=== PATIENT | female | born 1945 | race Caucasian/White ===

== ENCOUNTER 2021-02-07 12:39 | Outpatient (CLI) | payer MEDICARE, OTHER, SELFPAY ==
[2021-02-07 12:57] LABS: Basophils Percent Auto 0.5 % (0.2-1.2); Eosinophils Absolute Auto 0.2 K/mm3 (0-0.3); Eosinophils Percent Auto 3.9 % (0-4.4); Hematocrit 30.8 % (37.0-47.0); Hemoglobin 10.1 g/dL (12.0-15.0); Immature Granulocyte Absolute 0.02 K/mm3 (0.00-0.031); Immature Granulocyte Percent A 0.4 % (0-0.5); Lymphocytes Absolute Auto 1.06 K/mm3 (0.9-3.2); Lymphocytes Percent Auto 18.8 % (18.3-44.2); Mean Corpuscular HGB Conc 32.8 g/dl (32-36); Mean Corpuscular Volume 88.5 fl (80-100); Mean Platelet Volume 8.2 fl (7.4-10.4); Monocytes Absolute Auto 0.4 K/mm3 (0.1-0.6); Monocytes Percent Auto 7.5 % (2.6-8.5); Neutrophils Absolute Auto 3.9 K/mm3 (1.3-6.7); Neutrophils Percent Auto 68.9 % (45.5-73.1); Platelet Count Result 209 k/mm3 (150-375); Red Blood Count 3.48 M/mm3 (4.2-5.4); Red Cell Distribution Width 13.6 % (11.5-14.5); White Blood Count 5.6 K/mm3 (4.5-10.0)
[2021-02-07 14:46] LABS: Alanine Aminotransferase 19 U/L (4-35); Albumin Level 3.9 g/dL (3.5-5.1); Alkaline Phosphatase 67 U/L (38-126); Anion Gap 9 mmol/L (8-16); Aspartate Amino Transferase 30 U/L (14-36); Bilirubin,Total 0.3 mg/dL (0.2-1.3); Blood Urea Nitrogen 29 mg/dL (7-17); Calcium 9.4 mg/dL (8.4-10.2); Carbon Dioxide 22 mmol/L (22-30); Chloride 110 mmol/L (98-107); Estimated Glomerular Filt Rate 27; Glucose 101 mg/dL (65-105); Lactate Dehydrogenase 359 U/L (313-618); Sodium 141 mmol/L (137-145)
== END 2021-02-07 12:40 | disposition home or self-care (01) ==
LOC: ANHLAB 12:41
PROVIDERS: PCP Family Medicine; Visit Provider Internal Medicine Hematology & Oncology
DX: C85.90 Non-Hodgkin lymphoma, unspecified, unspecified site (principal)
CPT/HCPCS: 36415; 80053; 83615; 85025

== ENCOUNTER 2021-02-28 12:01 | Outpatient (CLI) | payer MEDICARE, OTHER, SELFPAY ==
[2021-02-28 12:20] LABS: Basophils Percent Auto 0.2 % (0.2-1.2); Eosinophils Absolute Auto 0.1 K/mm3 (0-0.3); Eosinophils Percent Auto 2.1 % (0-4.4); Hematocrit 31.4 % (37.0-47.0); Hemoglobin 10.2 g/dL (12.0-15.0); Immature Granulocyte Absolute 0.01 K/mm3 (0.00-0.031); Immature Granulocyte Percent A 0.2 % (0-0.5); Lymphocytes Absolute Auto 0.88 K/mm3 (0.9-3.2); Lymphocytes Percent Auto 16.6 % (18.3-44.2); Mean Corpuscular HGB Conc 32.5 g/dl (32-36); Mean Corpuscular Hemoglobin 28.8 pg (26-34); Mean Corpuscular Volume 88.7 fl (80-100); Mean Platelet Volume 8.7 fl (7.4-10.4); Monocytes Absolute Auto 0.4 K/mm3 (0.1-0.6); Monocytes Percent Auto 6.8 % (2.6-8.5); Neutrophils Absolute Auto 3.9 K/mm3 (1.3-6.7); Neutrophils Percent Auto 74.1 % (45.5-73.1); Platelet Count Result 205 k/mm3 (150-375); Red Blood Count 3.54 M/mm3 (4.2-5.4); Red Cell Distribution Width 13.5 % (11.5-14.5); White Blood Count 5.3 K/mm3 (4.5-10.0)
[2021-02-28 14:41] LABS: Alanine Aminotransferase 24 U/L (4-35); Albumin Level 4.2 g/dL (3.5-5.1); Alkaline Phosphatase 71 U/L (38-126); Anion Gap 10 mmol/L (8-16); Aspartate Amino Transferase 36 U/L (14-36); Bilirubin,Total 0.2 mg/dL (0.2-1.3); Blood Urea Nitrogen 29 mg/dL (7-17); Calcium 9.6 mg/dL (8.4-10.2); Carbon Dioxide 21 mmol/L (22-30); Chloride 110 mmol/L (98-107); Estimated Glomerular Filt Rate 31; Glucose 99 mg/dL (65-105); Potassium 4.1 mmol/L (3.4-5.0); Sodium 141 mmol/L (137-145)
[2021-02-28 14:59] LABS: Immunoglobulin G 2094 mg/dL (700-1600); Immunoglobulin M 45 mg/dL (40-230)
[2021-02-28 16:11] LABS: Immunoglobulin A 2185 mg/dL (70-400)
[2021-03-03 05:25] LABS: Abnormal Protein Band 1 1.2 g/dL; Albumin 3.8 g/dL (3.8-4.8); Alpha 1 Globulin 0.3 g/dL (0.2-0.3); Alpha 2 Globulin 0.6 g/dL (0.5-0.9); Beta 1 Globulin 0.5 g/dL (0.4-0.6); Gamma Globulin 3.2 g/dL (0.8-1.7); Protein, Total 8.9 g/dL (6.1-8.1)
[2021-03-03 05:46] LABS: Kappa\\Lambda Light Chains 2.35 (0.26-1.65); Lambda Light Chain 36.8 mg/L (5.7-26.3)
[2021-03-05 13:05] LABS: Beta-2-Microglobulin 7.09 mg/L (<=2.51)
== END 2021-02-28 12:02 | disposition home or self-care (01) ==
LOC: ANHLAB 12:05
PROVIDERS: PCP Family Medicine; Visit Provider Internal Medicine Hematology & Oncology
DX: C85.90 Non-Hodgkin lymphoma, unspecified, unspecified site (principal); E88.09 Other disorders of plasma-protein metabolism, not elsewhere classified
CPT/HCPCS: 36415; 80053; 82232; 82784; 83883; 84155; 84165; 85025; 88184; 88185

== ENCOUNTER 2021-03-17 12:14 | Outpatient (CLI) | payer MEDICARE, OTHER, SELFPAY ==
--- NOTE | ~2021-03-17 | XR_ITS ---
EXAMINATION: XR bone survey comp/metastic DATE: 03/17/2021 12:55 INDICATION: Plasma cell disorder. TECHNIQUE: 29 views of a skeletal survey were obtained. COMPARISON: None. FINDINGS: Calcified right lung nodules are consistent with old granulomatous disease. There is severe cervical spondylosis. 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 There is mild left hip osteoart hritis. There is thoracic kyphosis and severe lower thoracic spondylosis. There is severe lumbar spon dylosis. IMPRESSION: 1. No evidence of multiple myeloma. Reviewed, dictated and finalized at location B.
== END 2021-03-17 12:15 | disposition home or self-care (01) ==
PROVIDERS: PCP Family Medicine; Visit Provider Internal Medicine Hematology & Oncology
DX: D72.9 Disorder of white blood cells, unspecified (principal)
CPT/HCPCS: 77075

== ENCOUNTER → 2021-03-24 02:19 | Outpatient (CLI) | payer MEDICARE, OTHER, SELFPAY ==
[2021-03-24 19:11] LABS: SARS-CoV-2 RNA PCR Negative
== END ==
PROVIDERS: PCP Family Medicine; Visit Provider Internal Medicine Hematology & Oncology
DX: Z01.812 Encounter for preprocedural laboratory examination (principal); Z20.822 Contact with and (suspected) exposure to COVID-19
CPT/HCPCS: C9803; U0003; U0005

== ENCOUNTER 2021-03-27 02:22 | Day surgery (SDC) | payer MEDICARE, OTHER, SELFPAY ==
[2021-03-24 14:34] VITALS: BMI 23.8
--- NOTE | ~2021-03-27 | BM_ITS ---
EXAMINATION: CCL bone marrow asp w bx diag ORDER COMPLETED DATE: 03/27/2021 09:28 INDICATION: Plasma cell disorder TECHNIQUE: A time-out was performed to verify the patient's name, date of , and procedure to b e performed. The procedure including the risks and benefits was discussed with the patient. Risks dis cussed included bleeding, infection, nerve injury and allergic reaction. The patient understood the r isks and agreed to proceed. The skin overlying the left posterior iliac spine was prepped and draped in usual sterile fashion. Anesthetic was administered with 1% lidocaine subcutaneously. Moderate con scious sedation was achieved with 50 mcg fentanyl IV. An 11 gauge needle was inserted into the ilium with fluoroscopic guidance. Bone marrow was aspirated. An 8 gauge needle was then inserted into the i lium with fluoroscopic guidance. A core bone marrow biopsy was obtained. The needle was removed and t he entry site was cleaned and dressed. There were no immediate complications. A total of 8 fluorosco pic images were recorded. Fluoroscopy exposure time was 0.1 minutes. FINDINGS: Real-time fluoroscopy demonstrates the biopsy needle tip overlying the left posterior iliac spine. IMPRESSION: 1. Successful fluoroscopic guided bone marrow aspiration. 2. Successful fluoroscopic guided bone marrow biopsy. Reviewed, dictated and finalized at location A.
[2021-03-27 07:59] LABS: Basophils Percent Auto 0.4 % (0.2-1.2); Eosinophils Absolute Auto 0.2 K/mm3 (0-0.3); Eosinophils Percent Auto 2.4 % (0-4.4); Hematocrit 29.8 % (37.0-47.0); Hemoglobin 9.9 g/dL (12.0-15.0); Immature Granulocyte Absolute 0.02 K/mm3 (0.00-0.031); Immature Granulocyte Percent A 0.2 % (0-0.5); Lymphocytes Percent Auto 18.6 % (18.3-44.2); Mean Corpuscular HGB Conc 33.2 g/dl (32-36); Mean Corpuscular Hemoglobin 29.6 pg (26-34); Mean Corpuscular Volume 89.2 fl (80-100); Mean Platelet Volume 8.6 fl (7.4-10.4); Monocytes Absolute Auto 0.5 K/mm3 (0.1-0.6); Monocytes Percent Auto 5.7 % (2.6-8.5); Neutrophils Absolute Auto 5.9 K/mm3 (1.3-6.7); Neutrophils Percent Auto 72.7 % (45.5-73.1); Platelet Count Result 214 k/mm3 (150-375); Red Blood Count 3.34 M/mm3 (4.2-5.4); Red Cell Distribution Width 14.6 % (11.5-14.5); White Blood Count 8.1 K/mm3 (4.5-10.0)
[2021-03-27 08:14] LABS: INR 1.1; Prothrombin Time 14.9 Seconds (11.1-14.7)
[2021-03-27 08:20] VITALS: BP 153/72; PULSE 92; RESP 22; TEMP 36.7; O2SAT 99; BMI 22.9
--- NOTE | 2021-03-27 08:55 | WPDMODSED ---
Moderate Sedation Note-Pt Data Patient Data Allergies Allergy/AdvReac Type Severity Reaction Status Date / Time Sulfa (Sulfonamide Allergy Unknown Unknown Verified 03/27/21 08:35 Antibiotics) Home Medications Medication Instructions Recorded Confirmed Type calcium carb,cit ER 600 mg-vit D3 1 tablet PO DAILY 12/13/20 03/24/21 History 12.5 mcg (500 unit) tablet,ext.rel flaxseed oil 1,000 mg capsule 1,000 mg PO DAILY 12/13/20 03/24/21 History glucos sul [id number]-myilf-C-Mn 1 tab-cap PO DAILY 12/13/20 03/24/21 History [Glucosamine Chondroitin] multivitamin 1 tablet PO DAILY 12/13/20 03/24/21 History omeprazole 20 mg capsule,delayed 20 mg PO DAILY 12/13/20 03/24/21 History release turmeric 1 tab-cap PO DAILY 12/13/20 03/24/21 History cevimeline 30 mg capsule 30 mg PO TID #90 cap 01/03/21 03/24/21 Rx hydroxychloroquine 200 mg tablet 200 mg PO DAILY #90 tablet 01/03/21 03/24/21 Rx pilocarpine HCl 5 mg tablet 5 mg PO TID #90 tablet 01/03/21 03/24/21 Rx Prolia 1 ml IM WEEKLY 03/24/21 03/24/21 History Sodium Fluoride 5000 Dry Mouth 1 unit PO DAILY 03/24/21 03/24/21 History saliva substitute combo no.9 1 ml PO DAILY 03/24/21 03/24/21 History [Biotene Dry Mouth Oral Rinse] Sedation/Anesthesia: No previous sedation/anesthesia problems (including family history). [facility] Past Medical History Medical History Age-related osteoporosis without current pathological fracture Allergies GERD (gastroesophageal reflux disease) Osteoporosis Sjogren's syndrome without extraglandular involvement Weight loss Surgical History Surgical History H/O: hysterectomy History of appendectomy Family History Family History Mother Cerebrovascular accident Anxiety Father Hypertension Grandparent Tuberculosis Acute myocardial infarction Sibling Cancer Diabetes mellitus Glaucoma Myasthenia gravis Melanoma Social History Social History Smoking status: Never smoker Second hand tobacco smoke exposure: No Alcohol intake: former Alcohol use details: occasional use Substance use: never Substance use type: does not use Living arrangements: alone Gender identity (if verbalized by the patient): Female Sexual Orientation (if Verbalized by the Patient): Straight or Heterosexual Spiritual care concerns: No Mod Sed Physical Exam Physical Exam Pre Procedural Exam: Normal: Appearance, Eyes, Ears, Nose, Throat, Airway, Lungs, Heart Rate, Heart Rhythm, Extremities and Skin Hours since solid foods: 12 Hours since liquid intake: 12 Internal Medicine - PN: Obj Da Vital Signs Vital Signs: Vital Signs - 24 hr 03/27/21 08:20 Temperature 98.1 F Pulse Rate 92 Respiratory Rate 22 H Blood Pressure 153/72 H Pulse Oximetry 99 Labs CBC & Chem 7: 03/27/21 07:44 Labs: Laboratory Results - last 24 hr 03/27/21 03/27/21 07:44 07:44 WBC 8.1 RBC 3.34 L Hgb 9.9 L Hct 29.8 L MCV 89.2 MCH 29.6 MCHC 33.2 RDW 14.6 H Plt Count 214 MPV 8.6 Immature Gran % (Auto) 0.2 Neut % (Auto) 72.7 Lymph % (Auto) 18.6 [place] % (Auto) 5.7 Eos % (Auto) 2.4 Baso % (Auto) 0.4 Lymph # (Auto) 1.50 [place] # (Auto) 0.5 Eos # (Auto) 0.2 Baso # (Auto) 0.0 Abs Immat Gran (auto) 0.02 Absolute Neuts (auto) 5.9 Absolute Nucleated RBC 0.0 Nucleated RBC % 0.0 PT 14.9 H INR 1.1 ASA Classification/Sedation ASA Classification/Sedation ASA Class: III Emergent: No Risks: Risks, benefits and alternatives explained and patient/family accepted plan for sedation. Patient re-evaluated immediately prior to sedation.
--- NOTE | 2021-03-27 09:25 | WPDMODSED ---
Moderate Sedation Note-Pt Data Patient Data Allergies Allergy/AdvReac Type Severity Reaction Status Date / Time Sulfa (Sulfonamide Allergy Unknown Unknown Verified 03/27/21 08:35 Antibiotics) Home Medications Medication Instructions Recorded Confirmed Type calcium carb,cit ER 600 mg-vit D3 1 tablet PO DAILY 12/13/20 03/24/21 History 12.5 mcg (500 unit) tablet,ext.rel flaxseed oil 1,000 mg capsule 1,000 mg PO DAILY 12/13/20 03/24/21 History glucos sul [id number]-C-Mn 1 tab-cap PO DAILY 12/13/20 03/24/21 History [Glucosamine Chondroitin] multivitamin 1 tablet PO DAILY 12/13/20 03/24/21 History omeprazole 20 mg capsule,delayed 20 mg PO DAILY 12/13/20 03/24/21 History release turmeric 1 tab-cap PO DAILY 12/13/20 03/24/21 History cevimeline 30 mg capsule 30 mg PO TID #90 cap 01/03/21 03/24/21 Rx hydroxychloroquine 200 mg tablet 200 mg PO DAILY #90 tablet 01/03/21 03/24/21 Rx pilocarpine HCl 5 mg tablet 5 mg PO TID #90 tablet 01/03/21 03/24/21 Rx Prolia 1 ml IM WEEKLY 03/24/21 03/24/21 History Sodium Fluoride 5000 Dry Mouth 1 unit PO DAILY 03/24/21 03/24/21 History saliva substitute combo no.9 1 ml PO DAILY 03/24/21 03/24/21 History [Biotene Dry Mouth Oral Rinse] Sedation/Anesthesia: No previous sedation/anesthesia problems (including family history). [facility] Past Medical History Medical History Age-related osteoporosis without current pathological fracture Allergies GERD (gastroesophageal reflux disease) Osteoporosis Sjogren's syndrome without extraglandular involvement Weight loss Surgical History Surgical History H/O: hysterectomy History of appendectomy Family History Family History Mother Cerebrovascular accident Anxiety Father Hypertension Grandparent Tuberculosis Acute myocardial infarction Sibling Cancer Diabetes mellitus Glaucoma Myasthenia gravis Melanoma Social History Social History Smoking status: Never smoker Second hand tobacco smoke exposure: No Alcohol intake: former Alcohol use details: occasional use Substance use: never Substance use type: does not use Living arrangements: alone Gender identity (if verbalized by the patient): Female Sexual Orientation (if Verbalized by the Patient): Straight or Heterosexual Spiritual care concerns: No Mod Sed Physical Exam Physical Exam Pre Procedural Exam: Normal: Appearance, Eyes, Nose, Neck, Throat, Lungs, Heart Rate, Heart Rhythm, Abdomen and Extremities Hours since solid foods: 9 Hours since liquid intake: 9 Internal Medicine - PN: Obj Da Vital Signs Vital Signs: Vital Signs - 24 hr 03/27/21 08:20 Temperature 98.1 F Pulse Rate 92 Respiratory Rate 22 H Blood Pressure 153/72 H Pulse Oximetry 99 Labs CBC & Chem 7: 03/27/21 07:44 Labs: Laboratory Results - last 24 hr 03/27/21 03/27/21 07:44 07:44 WBC 8.1 RBC 3.34 L Hgb 9.9 L Hct 29.8 L MCV 89.2 MCH 29.6 MCHC 33.2 RDW 14.6 H Plt Count 214 MPV 8.6 Immature Gran % (Auto) 0.2 Neut % (Auto) 72.7 Lymph % (Auto) 18.6 [place] % (Auto) 5.7 Eos % (Auto) 2.4 Baso % (Auto) 0.4 Lymph # (Auto) 1.50 [place] # (Auto) 0.5 Eos # (Auto) 0.2 Baso # (Auto) 0.0 Abs Immat Gran (auto) 0.02 Absolute Neuts (auto) 5.9 Absolute Nucleated RBC 0.0 Nucleated RBC % 0.0 PT 14.9 H INR 1.1 ASA Classification/Sedation ASA Classification/Sedation ASA Class: III Emergent: No Risks: Risks, benefits and alternatives explained and patient/family accepted plan for sedation. Patient re-evaluated immediately prior to sedation.
[2021-03-27 09:40] VITALS: BP 142/62; PULSE 91; RESP 16; O2SAT 98
[2021-03-27 09:57] VITALS: BP 137/65; PULSE 91; RESP 16; O2SAT 98
[2021-03-27 10:10] VITALS: BP 125/65; PULSE 83; RESP 16; O2SAT 98
[2021-03-27 10:25] VITALS: BP 130/57; PULSE 82; RESP 16; O2SAT 98
[2021-03-27 10:40] VITALS: BP 131/64; PULSE 82; RESP 16; TEMP 36.7; O2SAT 98
--- NOTE | 2021-03-27 11:28 | SUR.PHASEII ---
1100 - Iv D/c'd from left forearm, catheter intact, no redness or swelling at the site. Drsg to right posterior hip remains clean dry and intact. Discharge instructions reviewed with patient and daughter with stated understanding. Pt aware to follow- up with referring MD next week for procedure results. Pt discharged via wheelchair to daughter's personal vehicle.
== END 2021-03-27 11:00 | disposition home or self-care (01) ==
PROVIDERS: PCP Family Medicine; Referring Provider Internal Medicine Hematology & Oncology; Visit Provider Radiology Diagnostic Radiology
DX: D75.9 Disease of blood and blood-forming organs, unspecified (principal); R63.4 Abnormal weight loss; D64.9 Anemia, unspecified; M35.00 Sjogren syndrome, unspecified; M81.0 Age-related osteoporosis without current pathological fracture; K21.9 Gastro-esophageal reflux disease without esophagitis
CPT/HCPCS: 36415; 38222; 85025; 85610; 88184; 88185; 88305; 88311; 88313; 88341; 88342; 88360; J3010; J7040

== ENCOUNTER 2021-06-29 10:52 | Outpatient (CLI) | payer MEDICARE, OTHER, SELFPAY ==
[2021-06-29 11:15] LABS: Basophils Percent Auto 0.4 % (0.2-1.2); Eosinophils Absolute Auto 0.4 K/mm3 (0-0.3); Eosinophils Percent Auto 8.4 % (0-4.4); Hematocrit 28.4 % (37.0-47.0); Hemoglobin 9.1 g/dL (12.0-15.0); Immature Granulocyte Absolute 0.01 K/mm3 (0.00-0.031); Immature Granulocyte Percent A 0.2 % (0-0.5); Lymphocytes Absolute Auto 0.92 K/mm3 (0.9-3.2); Lymphocytes Percent Auto 18.9 % (18.3-44.2); Mean Corpuscular Hemoglobin 29.3 pg (26-34); Mean Corpuscular Volume 91.3 fl (80-100); Mean Platelet Volume 8.1 fl (7.4-10.4); Monocytes Absolute Auto 0.3 K/mm3 (0.1-0.6); Monocytes Percent Auto 5.7 % (2.6-8.5); Neutrophils Absolute Auto 3.2 K/mm3 (1.3-6.7); Neutrophils Percent Auto 66.4 % (45.5-73.1); Platelet Count Result 209 k/mm3 (150-375); Red Blood Count 3.11 M/mm3 (4.2-5.4); Red Cell Distribution Width 13.5 % (11.5-14.5); White Blood Count 4.9 K/mm3 (4.5-10.0)
[2021-06-29 11:56] LABS: Anion Gap 10 mmol/L (8-16); Blood Urea Nitrogen 29 mg/dL (7-17); Calcium 9.8 mg/dL (8.4-10.2); Carbon Dioxide 20 mmol/L (22-30); Chloride 111 mmol/L (98-107); Estimated Glomerular Filt Rate 24; Glucose 103 mg/dL (65-110); Potassium 4.2 mmol/L (3.4-5.0); Sodium 141 mmol/L (137-145)
[2021-06-30 13:24] LABS: Iron 69 ug/dL (37-170)
[2021-06-30 13:33] LABS: Percent Iron Saturation 28 % (20-50)
== END 2021-06-29 10:53 | disposition home or self-care (01) ==
LOC: ANHLAB 10:59
PROVIDERS: PCP Family Medicine; Visit Provider Internal Medicine Hematology & Oncology
DX: N18.32 Chronic kidney disease, stage 3b (principal); D63.1 Anemia in chronic kidney disease
CPT/HCPCS: 36415; 80048; 82728; 83540; 83550; 85025

== ENCOUNTER 2021-08-21 10:05 | Outpatient (CLI) | payer MEDICARE, OTHER, SELFPAY ==
[2021-08-21 10:55] LABS: Add Urine Microscopic? NO; Appearance Urine Clear (Clear); Bilirubin Urine Negative (Negative); Blood Urine Negative (Negative); Color Urine Light Yellow (Yellow); Glucose Urine UA Negative (Negative); Ketones Urine Negative (Negative); Leukocyte Esterase Ur Negative LEU/UL (Negative); Nitrate Urine Negative (Negative); Protein Urine Negative (Negative); Urobilinogen Urine 0.2 mg/dL (<2.0); pH Urine 6.5 (5.0-9.0)
[2021-08-21 12:12] LABS: Alanine Aminotransferase 23 U/L (4-35); Albumin Level 4.3 g/dL (3.5-5.1); Alkaline Phosphatase 90 U/L (38-126); Anion Gap 10 mmol/L (8-16); Aspartate Amino Transferase 54 U/L (14-36); Bilirubin,Total 0.4 mg/dL (0.2-1.3); Blood Urea Nitrogen 36 mg/dL (7-17); CRP < 0.5 mg/dL (<1.0); Calcium 9.9 mg/dL (8.4-10.2); Carbon Dioxide 19 mmol/L (22-30); Chloride 110 mmol/L (98-107); Estimated Glomerular Filt Rate 23; Glucose 99 mg/dL (65-110); Potassium 4.3 mmol/L (3.4-5.0); Sodium 139 mmol/L (137-145)
== END 2021-08-21 10:06 | disposition home or self-care (01) ==
LOC: ANHLAB 10:08
PROVIDERS: PCP Family Medicine; Visit Provider Internal Medicine
DX: M19.90 Unspecified osteoarthritis, unspecified site (principal); M35.00 Sjogren syndrome, unspecified; Z79.899 Other long term (current) drug therapy
CPT/HCPCS: 36415; 80053; 81003; 86140

== ENCOUNTER 2023-02-20 00:28 | Day surgery (SDC) | payer MEDICARE, OTHER, SELFPAY ==
[2023-02-20] VITALS (7 sets, daily range): BP systolic 138–165; BP diastolic 71–82; PULSE 75–91; RESP 14–18; TEMP 37.3; O2SAT 92–96; BMI 19.1
--- NOTE | ~2023-02-20 | BM_ITS ---
EXAMINATION: CCL bone marrow asp w bx diag DATE: 02/20/2023 09:38 INDICATION: Plasma cell disorder. TECHNIQUE: A time-out was performed to verify the patient's name, date of , and procedure to b e performed. The procedure including the risks, benefits, and alternatives was discussed with the pat ient. Risks discussed included bleeding and infection. The patient understood the risks and agreed to proceed. The skin overlying the left ilium was prepped and draped in usual sterile fashion. Anesth etic was administered with 1% lidocaine subcutaneously. Moderate sedation was achieved with 0.5 mg Ve rsed IV and 50 mg fentanyl IV. An 11 gauge needle was inserted into the ilium with fluoroscopic guid ance. Bone marrow was aspirated. An 8 gauge needle was then inserted into the ilium with fluoroscopic guidance. A core bone marrow biopsy was obtained. There were no immediate complications. Fluoroscopy exposure time was 0.0 minutes. The total number of images was 9. FINDINGS: Real-time fluoroscopy demonstrates a marker overlying the left posterior superior iliac spi ne. IMPRESSION: 1. Fluoro-guided bone marrow aspiration. 2. Fluoro-guided bone marrow core biopsy. Reviewed, dictated and finalized at location A.
[2023-02-20 07:49] LABS: Hematocrit 31.2 % (37.0-47.0); Mean Corpuscular HGB Conc 32.1 g/dl (32-36); Mean Corpuscular Hemoglobin 31.7 pg (26-34); Mean Platelet Volume 8.5 fl (7.4-10.4); Platelet Count Result 108 k/mm3 (150-375); Red Blood Count 3.15 M/mm3 (4.2-5.4); Red Cell Distribution Width 16.7 % (11.5-14.5); White Blood Count 5.2 K/mm3 (4.5-10.0)
[2023-02-20 08:01] LABS: INR 1.3; Prothrombin Time 15.3 Seconds (11.1-14.7)
--- NOTE | 2023-02-20 08:22 | WPDMODSED ---
Moderate Sedation Note-Pt Data Patient Data Diagnosis: Plasma cell disorder. Present Complaint: Plasma cell disorder. Procedure to be performed/Plan: Fluoro-guided bone marrow biopsy of ilium. Allergies Allergy/AdvReac Type Severity Reaction Status Date / Time Sulfa (Sulfonamide Allergy Unknown Unknown Verified 02/20/23 07:38 Antibiotics) gabapentin AdvReac Unknown Other Verified 02/20/23 07:38 Home Medications Medication Instructions Recorded Confirmed Type omeprazole 20 mg capsule,delayed 20 mg PO DAILY 12/13/20 02/20/23 History release fluticasone propionate 50 1 spray intranasal DAILY 04/28/21 02/19/23 History mcg/actuation nasal spray,suspension saliva substitute combo no.9 15 ml mucous membrane QID PRN Dry 07/24/21 02/19/23 History (Biotene Dry Mouth Oral Rinse Mouth mouthwash) hydroxychloroquine 200 mg tablet 200 mg PO DAILY #90 tabs 10/19/22 02/19/23 Rx (Plaquenil) pilocarpine HCl 5 mg tablet 5 mg PO TID #90 tabs 10/19/22 02/20/23 Rx Epogen See Rx Instructions .Route .COMPLEX 02/19/23 02/19/23 History Venofer See Rx Instructions .Route .COMPLEX 02/19/23 02/19/23 History buspirone 5 mg tablet 5 mg PO TID PRN Anxiety 02/19/23 02/19/23 History carboxymethylcellulose sodium 0.25 1 drp LEFT EYE DAILY PRN Dry Eyes 02/19/23 02/19/23 History % eye drops (TheraTears) cetirizine 10 mg tablet (Zyrtec) 10 mg PO DAILY PRN allergies 02/19/23 02/19/23 History fluoride (sodium) 1.1 % dental 1 applic PO DAILY 02/19/23 02/19/23 History paste (PreviDent 5000 Dry Mouth) hydroxyzine HCl 25 mg tablet 25 mg PO TID 02/19/23 02/19/23 History nut.tx.impaired renal fxn,soy 1 ea PO USEASDIRECTD 02/19/23 02/19/23 History nutritional supplements 1 ea PO USEASDIRECTD 02/19/23 02/19/23 History olopatadine 0.2 % eye drops 1 drp EACH EYE DAILY 02/19/23 02/19/23 History sevelamer carbonate 800 mg tablet 1,600 mg PO TID 02/19/23 02/19/23 History Sedation/Anesthesia: No previous sedation/anesthesia problems (including family history). [facility] Past Medical History Medical History Age-related osteoporosis without current pathological fracture Allergies GERD (gastroesophageal reflux disease) Osteoporosis Sjogren's syndrome without extraglandular involvement Weight loss Surgical History Surgical History H/O: hysterectomy History of appendectomy Family History Family History Mother Cerebrovascular accident Anxiety Father Hypertension Grandparent Tuberculosis Acute myocardial infarction Sibling Cancer Diabetes mellitus Glaucoma Myasthenia gravis Melanoma Social History Social History Smoking status: Never smoker Second hand tobacco smoke exposure: Yes ( smoked) Substance use: never Substance use type: does not use Living arrangements: alone Gender identity (if verbalized by the patient): Female Sexual Orientation (if Verbalized by the Patient): Straight or Heterosexual Spiritual care concerns: No Mod Sed Physical Exam Physical Exam Pre Procedural Exam: Normal: Airway, Lungs, Heart Rate, Heart Rhythm and Abdomen Hours since solid foods: 10 Hours since liquid intake: 10 Mallampati Classification: class 1 Internal Medicine - PN: Obj Da Vital Signs Vital Signs: Vital Signs - 24 hr 02/20/23 07:42 Temperature 37.3 C Pulse Rate 88 Respiratory Rate 14 Blood Pressure 164/82 H Pulse Oximetry 96 Oxygen Delivery Room Air Labs 02/20/23 07:41 Labs: Laboratory Results - last 24 hr 02/20/23 02/20/23 07:41 07:41 WBC 5.2 RBC 3.15 L Hgb 10.0 L Hct 31.2 L MCV 99.0 MCH 31.7 MCHC 32.1 RDW 16.7 H Plt Count 108 L MPV 8.5 PT 15.3 H INR 1.3 ASA Classification/Sedation ASA Classification/Sedation ASA Cl
== END 2023-02-20 10:30 | disposition home or self-care (01) ==
PROVIDERS: PCP Family Medicine; Referring Provider Internal Medicine Hematology & Oncology; Visit Provider Radiology Diagnostic Radiology
DX: C90.00 Multiple myeloma not having achieved remission (principal); M35.00 Sjogren syndrome, unspecified; M81.0 Age-related osteoporosis without current pathological fracture; K21.9 Gastro-esophageal reflux disease without esophagitis
CPT/HCPCS: 36415; 38222; 85027; 85610; 88184; 88185; 88305; 88311; 88313; 88341; 88342; J1642; J2250; J3010

== ENCOUNTER 2023-04-24 01:04 | Day surgery (SDC) | payer MEDICARE, OTHER, SELFPAY ==
--- NOTE | 2023-04-12 14:48 | PC.NURSE ---
Report to the Outpatient Waiting Room, entrance under the green pavilion located off [facility], at time __0700 on date __04/24/23 . Planned Procedure Time: _0900 . Time changes happen often and if your time is changed the preop area will call you the afternoon before. - You and your visitor will be asked to self-screen and do not enter if you have any COVID symptoms. - A mask is optional within the hospital at this time. Patients may have clear liquids (water, carbonated beverages, clear teas, apple juice) until 3 hours prior to surgery with a maximum of 20 ounces. - No food from midnight until time of surgery - Infants may have breast milk until 4 hours before surgery, infant formula 6 hours prior to surgery. - Children will be allowed to drink immediately following surgery. If applicable, please bring a bottle or sippy cup to assist with drinking. Juice, water, soda, and popsicles are readily available. For infants on formula, please bring formula the day of surgery. Pacifiers are allowed. Take the following medications with a SIP of water the morning of surgery: ___BUSPIRONE IF NEEDED,EYE DROPS DO NOT STOP ANY OF YOUR OTHER PRESCRIPTION MEDICATIONS PRIOR TO SURGERY ?EXCEPT THE FOLLOWING Medications to discontinue per physician NONE Date to take last dose Please no make-up, nail taiwanese, hairspray, perfume, deodorant, or body powder the day of surgery. No jewelry (including any body piercings) or valuables the day of surgery, leave them at home. Please take a shower or bath the night before, or the morning of, surgery with an antibacterial soap. Wear comfortable, loose fitting clothing. Children are encouraged to wear pajamas. - Jewelry must be removed prior to entering the operating room. Rings and piercings that are not removed may be cut off. - The hospital will not accept responsibility for valuables. - Please leave all valuables, including medications, at home the day of surgery. If you are going home after surgery, a licensed special events driver must drive you home. - NO public transportation without another adult if you receive anesthesia. - We recommend that an adult stay with you for 24 hours following discharge. - We also recommend that you do not drive, make important decision, drink alcoholic beverages, or take any drugs that were not prescribed by your health care provider for at least 24 hours after your discharge time. For Pediatric surgeries, we recommend two adults accompany the child home. Follow any additional instructions given to you from your surgeon. If you or anyone in your household have experienced Covid symptoms in the past week, please notify your surgeon or the nurse liaison at the phone number below for possible testing. Telephone instructions given to ___PATIENT and asked if any additional questions and then verbalized understanding. Patient advised to call surgeon office or pre surgery nurse liaison [phone] if any additional questions.
[2023-04-12 14:52] VITALS: BMI 19.8
--- NOTE | ~2023-04-24 | XR_ITS ---
EXAMINATION: XR fl guide central line place DATE: 04/24/2023 12:02 INDICATION: Port placement. TECHNIQUE: 2 intraoperative fluoroscopic views of the chest were obtained. I was not present. Fluoros copy exposure time was 64 seconds. COMPARISON: Chest radiograph 03/17/2021 FINDINGS: There is a right internal jugular central venous catheter with tip in superior vena cava. T he last image demonstrates increased opacity overlying the right lung. IMPRESSION: 1. Central line tip in superior vena cava. 2. Increased opacity overlying the right lung on the last image. This finding may be secondary to jeovany hnique and patient rotation or may be secondary to acute lung disease or acute right pleural effusion . Reviewed, dictated and finalized at location A. IMPRESSION: 1. Central line tip in superior vena cava. 2. Increased opacity overlying the right lung on the last image. This finding m ay be secondary to technique and patient rotation or may be secondary to acute lung disease or acute right pleural effusion.
[2023-04-24] MEDS: SODIUM CHLORIDE 0.9% IV 500 ML 30 ML IV CONT (07:44)
[2023-04-24 07:53] VITALS: BP 172/73; PULSE 94; RESP 16; TEMP 37.6; O2SAT 96
[2023-04-24 07:54] LABS: Anion Gap 8 mmol/L (8-16); Blood Urea Nitrogen 36 mg/dL (7-17); Calcium 9.9 mg/dL (8.4-10.2); Carbon Dioxide 34 mmol/L (22-30); Chloride 95 mmol/L (98-107); Estimated CRCL calculation 7 ml/min; Estimated Glomerular Filt Rate 9; Glucose 77 mg/dL (65-110); Potassium 4.8 mmol/L (3.4-5.0); Sodium 137 mmol/L (137-145)
[2023-04-24 07:55] LABS: Partial Thromboplastin Time 34.8 SECONDS (22.3-36.8)
--- NOTE | 2023-04-24 08:33 | WPDANESEPPF ---
Anes - Initial Pre Proc Eval Procedure: Operation Date: 04/24/23 09:00 Proposed Procedures p Insertion Merissa Cath - Fabian Crow MD Date/Time: 04/24/23 08:33 Surgeon: Fabian Crow MD Pre Op Diagnosis: multiple myeloma Patient Data Age: 77 Gender: F Height: 1.55 m Weight: 47.2 kg Last Vital Signs Temp 99.6 F 04/24/23 07:53 Pulse 94 04/24/23 07:53 Resp 16 04/24/23 07:53 BP 172/73 H 04/24/23 07:53 Pulse Ox 96 04/24/23 07:53 O2 Del Method Room Air 04/24/23 07:53 Allergies Allergy/AdvReac Type Severity Reaction Status Date / Time Sulfa (Sulfonamide Allergy Unknown Unknown Verified 04/24/23 07:15 Antibiotics) gabapentin AdvReac Unknown Other Verified 04/24/23 07:15 Home Medications Medication Instructions Recorded Confirmed Type omeprazole 20 mg capsule,delayed 20 mg PO DAILY 12/13/20 04/12/23 History release fluticasone propionate 50 1 spray intranasal DAILY 04/28/21 04/12/23 History mcg/actuation nasal spray,suspension saliva substitute combo no.9 15 ml mucous membrane QID PRN Dry 07/24/21 04/12/23 History (Biotene Dry Mouth Oral Rinse Mouth mouthwash) Epogen See Rx Instructions .Route .COMPLEX 02/19/23 04/12/23 History Venofer See Rx Instructions .Route .COMPLEX 02/19/23 04/12/23 History buspirone 5 mg tablet 5 mg PO TID PRN Anxiety 02/19/23 04/12/23 History carboxymethylcellulose sodium 0.25 1 drp LEFT EYE DAILY PRN Dry Eyes 02/19/23 04/12/23 History % eye drops (TheraTears) cetirizine 10 mg tablet (Zyrtec) 10 mg PO DAILY PRN allergies 02/19/23 04/12/23 History fluoride (sodium) 1.1 % dental 1 applic PO DAILY 02/19/23 04/12/23 History paste (PreviDent 5000 Dry Mouth) nut.tx.impaired renal fxn,soy 1 ea PO USEASDIRECTD 02/19/23 04/12/23 History nutritional supplements 1 ea PO USEASDIRECTD 02/19/23 04/12/23 History olopatadine 0.2 % eye drops 1 drp EACH EYE DAILY 02/19/23 04/12/23 History sevelamer carbonate 800 mg tablet 1,600 mg PO TID 02/19/23 04/12/23 History hydroxychloroquine 200 mg tablet 200 mg PO DAILY #90 tabs 04/08/23 04/12/23 Rx (Plaquenil) mirtazapine 7.5 mg tablet 7.5 mg PO DAILY 04/08/23 04/12/23 History pilocarpine HCl 5 mg tablet 5 mg PO TID #270 tabs 04/08/23 04/12/23 Rx Laboratory Tests 04/24/23 07:39 APTT 34.8 SECONDS (22.3-36.8) Sodium 137 mmol/L (137-145) Potassium 4.8 mmol/L (3.4-5.0) Chloride 95 L mmol/L (98-107) Carbon Dioxide 34 H mmol/L (22-30) Anion Gap 8 mmol/L (8-16) BUN 36 H mg/dL (7-17) Creatinine 4.60 H mg/dL (0.7-1.0) Estim Creat Clear Calc 7 ml/min Estimated GFR 9 L (59 - ) Glucose 77 mg/dL (65-110) Calcium 9.9 mg/dL (8.4-10.2) Patient hx anesthesia problems: none Family hx anesthesia problems: none Results Review: All pre-operative results and documents have been reviewed as part of the pre-operative evaluation. [facility] Past Medical History Medical History Age-related osteoporosis without current pathological fracture Allergies GERD (gastroesophageal reflux disease) MGUS (monoclonal gammopathy of unknown significance) Multiple myeloma Osteoporosis Sjogren's syndrome without extraglandular involvement Weight loss Surgical History Surgical History H/O: hysterectomy History of appendectomy Family History Family History Mother Cerebrovascular accident Anxiety Father Hypertension Grandparent Tuberculosis Acute myocardial infarction Sibling Cancer Diabetes mellitus Glaucoma Myasthenia gravis Melanoma Social History Social History Smoking status: Never smoker Second hand tobacco smoke exposure: Yes ( smoked) Substance use: never Substance use type: does not use
--- NOTE | 2023-04-24 09:17 | WPDHPUPDATE1 ---
History and Physical Update Update Date/Time: 04/24/23 09:17 History and Physical has been reviewed, including an updated exam of the patient. There are NO changes in the patient's condition. Risks, benefits, and alternatives have been discussed and questions answered. Patient agrees to proceed with procedure.
[2023-04-24] MEDS: ceFAZolin 2 GM/D5W 50 ML 2 GM/50 ML BAG IVPB (09:21)
[2023-04-24] MEDS: HEPARIN SODIUM 5,000 UNITS/ML VIAL 1000 UNITS IRRIGATION (10:03)
[2023-04-24] MEDS: HEPARIN SODIUM 5,000 UNITS/ML VIAL 5000 UNITS XX (10:04)
[2023-04-24] MEDS: LIDO 1%/EPINEPHRINE 1:100,000 20 ML VIAL 10 ML INFILTRATE (10:06)
--- NOTE | 2023-04-24 11:25 | SUR.OPER ---
At 10:35, Code Vladislav called per Anesthesia, chest compressions started. See Anesthesia documentation for medications and further details surrounding code.
--- NOTE | 2023-04-24 18:10 | W.PM.PROC2 ---
Procedure Note - Detailed Date of Procedure 04/24/23 Pre-op Diagnosis Multiple myeloma,End-stage renal disease Post-op Diagnosis Other ( Cardiac arrest secondary to hemorrhagic shock) Procedure Performed Attempted placement of right internal jugular vein Port-A-Cath Surgeon Fabian Crow MD Director Of [employer] Jono Messina, RN GASTROENTEROLOGY Anesthesia General Indications Patient is a 77-year-old white female who has multiple myeloma and is on dialysis for end-stage renal disease Description of Procedure After informed consent was obtained patient brought to the operating room she was placed supine position and then general LMA anesthesia was administered. The bilateral upper anterior chest and neck was then prepped and draped usual sterile fashion time-out was then performed correctly identifying the patient as well as procedure to be performed verified she was given some perioperative IV antibiotics. An approach placement of the catheter into the right internal jugular vein. The left-sided great veins were avoided because she had a left upper extremity AV graft for hemodialysis. Utilizing real-time ultrasound I was able to cannulate the right internal jugular vein and passed a guidewire via the right internal jugular vein into the superior vena cava. Intraoperative fluoroscopy was used to confirm that were placement of the guidewire in the superior vena cava. I then anesthetized the area the port pocket in the right upper anterior chest. This is done with 1% lidocaine mixed with 0.5% Marcaine. Then made a transverse incision in this area the scalp wound then with electrocautery and blunt finger dissection created the subcutaneous port pocket. Then tunneled a 9.6 [place] Helen[place] single-lumen catheter between the chest incision and the right neck incision. I then advanced dilator breakaway sheath over the guidewire. The dilator and guidewire were removed leaving the sheath in place. I advanced the size 9.6 [place] Helen[place] single-lumen catheter into the sheath. At that time there was not any backflow of any blood. Once had the catheter in place I tried to aspirate the catheter no blood aspirated through the catheter. I checked fluoroscopy again in the tip of the catheter appeared to be in the superior cava. I pulled the catheter back to see if there is and kinking and still there was no blood return. At this point I decided I would try placement of catheter into the right subclavian vein. I then removed the catheter from the right internal jugular vein. Very soon after I did this the patient started to have decrease in blood pressure decrease in oxygen saturations. Anesthesia then infused pressors and intubated the patient. We can no longer feel a carotid and femoral pulses so we started CPR with chest compressions. Anesthesia listened for breath sounds and appeared to breath sounds bilaterally. I went ahead and proceeded to place a right chest tube in case there was a tension pneumothorax. Placement of a chest tube into the right chest there was prompt drainage of rishi blood. We continued chest compressions and 3 rounds of cardiac shocks administration of atropine. I spoke to the patient's son who was awaiting Smith CPR continued and informed him of the dire situation with the patient being coded in the operating room. Then return to the operating room and there was approximately1.5L of blood that had collected of the right chest into the Pleur-evac. At this time CPR had been going on for about 25 to 30 minutes without return of heart rate or blood pressure. It was decided at this point the continuing CPR was futile and so I called the code. I then returned to speak to the patient's son and informed him and his sister on the phone with her mother had in the operating room during the procedure. They were understandably distraught. While we waited for the patient's daughter to come to the hospital the patient was taken to a private closed outpatient room. The dope maintenance worker
== END 2023-04-24 10:56 | disposition expired ==
PROVIDERS: Anesthesiology; PCP Family Medicine; Visit Provider Surgery
PROC: (CPT 36561; principal; 2023-04-24 09:00)
DX: C90.00 Multiple myeloma not having achieved remission (principal); I46.8 Cardiac arrest due to other underlying condition; R57.0 Cardiogenic shock; N18.6 End stage renal disease; Z99.2 Dependence on renal dialysis; D47.2 Monoclonal gammopathy; M35.00 Sjogren syndrome, unspecified; M81.0 Age-related osteoporosis without current pathological fracture; K21.9 Gastro-esophageal reflux disease without esophagitis
CPT/HCPCS: 36561; 32556; 92950; 36415; 77001; 80048; 85730; 86900; 86901; 86920; C1729; J0171; J0461; J0690; J1644; J2250; J2370; J2704; J3010; J7030; J7040